=== PATIENT | male | born 1995 | race African-American/Black ===

== ENCOUNTER 2017-01-01 15:04 | Emergency (ER) | payer MEDICAID ==
[~2017-01-01] VITALS: Ht 177.8 cm; Wt 74.8 kg
[2017-01-01] MEDS ORDERED: PROMETHAZINE HCL 25 MG/ML 1ML IV ONE (17:00)
[2017-01-01] MEDS ORDERED: NALBUPHINE HCL 10 MG/1ml INJECTION IV ONE (17:00)
[2017-01-01] MEDS ORDERED: cefTRIAXone 1GM/50ML D5W 50 ML IV ONE (17:00)
[2017-01-01] MEDS ORDERED: TETANUS-DIPTH-ACEL PERTUSSIS 0.5ML SYRG IM ONE (18:45)
[2017-01-01 19:36] VITALS: BP 137/79
[2017-01-01] MEDS ORDERED: DEXTROSE 50% SYRINGE 50 ML IV ONE (19:42)
[2017-01-01] MEDS ORDERED: MORPHINE SULF INJ 2 MG/ML SYRINGE 1ML ONE (19:45)
[2017-01-01] MEDS ORDERED: ONDANSETRON HCL 4 MG/2 ML VIAL ONE (19:46)
[2017-01-01] MEDS ORDERED: MORPHINE SULF INJ 2 MG/ML SYRINGE 1ML IV ONE (20:00)
[2017-01-01] MEDS ORDERED: DEXTROSE (50%) 50ML SYRG IV ONE (20:00)
[2017-01-01] MEDS ORDERED: ONDANSETRON HCL 4 MG/2 ML VIAL IV ONE (20:00)
== END 2017-01-01 20:01 | disposition short-term general hospital (02) ==
LOC: EDBD 15:04 → ER 15:14
DX: S02.2XXA Fracture of nasal bones, initial encounter for closed fracture (principal); S02.40EA Zygomatic fracture, right side, initial encounter for closed fracture; S02.609A Fracture of mandible, unspecified, initial encounter for closed fracture; Y04.8XXA Assault by other bodily force, initial encounter; Y93.89 Activity, other specified; Y99.8 Other external cause status; Y92.481 Parking lot as the place of occurrence of the external cause; Z23 Encounter for immunization
CPT/HCPCS: 70450; 70486; 72125; 82962; 90471; 90715; 96365; 96375; 99291; J0696; J2270; J2300; J2405; J2550; J7042

== ENCOUNTER 2018-03-27 03:13 | Emergency (ER) | payer MEDICAID ==
[~2018-03-27] VITALS: Ht 180.3 cm; Wt 64.4 kg
[2018-03-27 03:50] VITALS: BP 93/42
[2018-03-27] MEDS ORDERED: KETOROLAC TROMETH 60MG/2ML VIAL IM ONE (07:00)
== END 2018-03-27 07:47 | disposition home or self-care (01) ==
LOC: ER 03:16
DX: S39.012A Strain of muscle, fascia and tendon of lower back, initial encounter (principal); X50.9XXA Other and unspecified overexertion or strenuous movements or postures, initial encounter; Y93.89 Activity, other specified; Y99.0 Civilian activity done for income or pay; Y92.69 Other specified industrial and construction area as the place of occurrence of the external cause
CPT/HCPCS: 72100; 96372; 99283; J1885

== ENCOUNTER 2018-07-22 21:39 | Emergency (ER) | payer MEDICAID ==
[~2018-07-22] VITALS: Ht 182.9 cm; Wt 74.8 kg
[2018-07-22 22:46] VITALS: BP 127/61
== END 2018-07-22 22:49 | disposition left against medical advice (07) ==
LOC: EDBD 21:39 → ER 21:39
DX: M54.5 Low back pain (principal); Z53.21 Procedure and treatment not carried out due to patient leaving prior to being seen by health care provider

== ENCOUNTER 2018-11-10 21:47 | Emergency (ER) | payer MEDICAID ==
[~2018-11-10] VITALS: Ht 180.3 cm; Wt 69.9 kg
[2018-11-10] MEDS ORDERED: ONDANSETRON HCL 4 MG/2 ML VIAL IV ONE (22:30)
[2018-11-10] MEDS ORDERED: SODIUM CHLORIDE 0.9% 1,000 ML IV ONE (22:30)
[2018-11-10 22:32] LABS: Basophils # (auto) 0.1 uL; Basophils % (auto) 0.6 % (0.0-2.0); Eosinophils # (auto) 0.1 uL; Hematocrit 47.4 % (41.0-53.0); Hemoglobin 15.5 g/dL (13.5-17.5); Lymphocytes # (auto) 3.5 uL; Lymphocytes % (auto) 28.4 % (10.0-50.0); Mean Corpuscular Hemoglobin 27.5 pg (28.0-32.0); Mean Corpuscular Hgb Conc. 32.7 g/dL (32.0-36.0); Mean Corpuscular Volume 84.2 fL (80.0-100.0); Monocytes # (auto) 0.6 uL; Monocytes % (auto) 4.7 % (0.0-12.0); Neutrophils # (auto) 8.1 uL; Neutrophils % (auto) 65.3 % (37.0-80.0); Nucleated Red Blood Cells % 0.2 %; Platelet Count (auto) 228 10^3/uL (140-450); Red Blood Cells 5.63 10^6/uL (4.5-5.90); Red Cell Distribution Width 13.6 % (11.8-14.3); White Blood Cell 12.4 10^3/uL (4.4-10.8)
[2018-11-10 22:49] LABS: Salicylate < 1.7 mg/dL (2.8-20.0)
[2018-11-10 22:50] LABS: Albumin 4.7 g/dL (3.4-5.0); Anion Gap 11 (5-15); Blood Urea Nitrogen 10 mg/dL (7-18); Calcium 8.7 mg/dL (8.5-10.1); Carbon Dioxide 24 mmol/L (21-32); Chloride 106 mmol/L (98-107); Glucose 175 mg/dL (74-106); Potassium 3.8 mmol/L (3.5-5.1); Sodium 141 mmol/L (136-145)
[2018-11-10 22:55] LABS: Acetaminophen < 2.0 ug/mL (10-30)
[2018-11-10 22:56] LABS: Alanine Aminotransferase 182 U/L (16-61); Alkaline Phosphatase 57 U/L (45-117); Aspartate Aminotransferase 144 U/L (15-37); Bilirubin, Total 0.7 mg/dL (0.2-1.0); GFR African American 92 mL/min; GFR Non-African American 76 mL/min; Total Protein 7.9 g/dL (6.4-8.2)
[2018-11-10 23:06] LABS: INR 1.04 (0.9-1.15); Partial Thromboplastin Time 24.2 sec (23.64-32.05)
[2018-11-10 23:49] LABS: Urine Bacteria MOD /hpf (None Seen); Urine Blood 2+ /uL (Negative); Urine Hyaline Cast MOD /lpf (0 - 2); Urine Mucus FEW (None Seen); Urine Specific Gravity 1.015 (1.001-1.035); Urine WBC 8 /hpf (0 - 3)
[2018-11-11 00:05] LABS: Alcohol, Urine < 3.0 mg/dL (0-5); Amphetamine Screen, Urine NEGATIVE (NEGATIVE); Barbiturate Scree,Urine NEGATIVE (NEGATIVE); Benzodiazephine Screen, Urine POSITIVE (NEGATIVE); Cannabinoid Screen, Urine POSITIVE (NEGATIVE); Cocaine Screen, Urine POSITIVE (NEGATIVE); Opiate Scree,Urine NEGATIVE (NEGATIVE); Phencyclidine Screen, Urine NEGATIVE (NEGATIVE)
[2018-11-11 00:30] LABS: Lactic Acid w/Reflex 5.2 mmol/L (0.4-2.0)
[2018-11-11 01:00] VITALS: BP 108/54
== END 2018-11-11 01:40 | disposition home or self-care (01) ==
LOC: EDBD 21:47 → ER 21:49
DX: I48.0 Paroxysmal atrial fibrillation (principal); K70.30 Alcoholic cirrhosis of liver without ascites; F14.10 Cocaine abuse, uncomplicated
CPT/HCPCS: 36415; 71045; 80053; 80307; 80320; 80329; 81001; 83605; 83880; 84484; 85025; 85610; 85730; 87040; 93005; 94761; 96361; 96374; 99284; J2405; J7030